=== PATIENT | female | born 1960 ===

== ENCOUNTER 2017-10-05 12:25 | Emergency (ER) | payer MEDICAID ==
[2017-10-05 12:26] VITALS: BMI 34.9
[2017-10-05] MEDS ORDERED: Naproxen 500 MG TAB PO STA (13:56)
--- NOTE | 2017-10-05 14:13 | ED PDOC ---
Lower Extremity Pain/Injury Time Seen by Provider: 10/05/17 12:37 Chief Complaint (Nursing): Lower Extremity Problem/Injury Chief Complaint (Provider): Lower Extremity Problem/Injury History Per: Patient History/Exam Limitations: no limitations Onset/Duration Of Symptoms: Sudden Onset Severity: Mild Pain Scale Rating Of: 8 Additional Complaint(s): 57 years old female with history of hypertension and hypercholesterolemia, presents to the ED today for evaluation of her right ankle pain. Patient states she was getting off the bus earlier today and slipped on wet ground. She reports pain severity as 8 out of 10 scale localized to the right ankle. Patient denies taking medication prior to arrival. Patient also denies any other extremity injury, head injury/LOC, or radiation of pain. PCP: Gigi Bobo - Ankle/Foot Description Of Injury: Other (Slipped) Past Medical History Reviewed: Historical Data, Nursing Documentation, Vital Signs Vital Signs: Last Vital Signs Temp 97.8 F 10/05/17 12:29 Pulse 90 10/05/17 12:29 Resp 20 10/05/17 12:29 BP 167/89 H 10/05/17 12:29 Pulse Ox 98 10/05/17 12:29 - Medical History PMH: Arthritis (osteoarthritis), Fibromyalgia, Fractures (ORIF LEFT TIBIA), Gall Bladder Disease, GERD, HTN (uncontrolled), Hypercholesterolemia, Migraine Denies: Chronic Kidney Disease - Surgical History Surgical History: Cholecystectomy - Family History Family History: States: Unknown Family Hx - Home Medications Home Medications: Ambulatory Orders Medication Instructions Recorded Clindamycin [Cleocin] 300 mg PO TID #30 cap 07/04/14 oxyCODONE/Acetaminophen [Percocet 1 tab PO Q4H PRN #20 tab 07/04/14 5/325 mg Tab] Ibuprofen 600 mg PO Q6H PRN #15 tab 10/23/14 Oxycodone HCl/Acetaminophen 1 tab PO Q6 PRN #10 tab 10/23/14 [Percocet 325 mg-5 mg] Simvastatin 10 mg PO HS 10/23/14 Butalb/Acetaminophen/Caffeine 1 tab PO DAILY PRN 05/06/15 [Gvygybmyco-Tpondecjtxslx-Glnjxcpf 325 mg-50 M] Cyclobenzaprine [Flexeril] 10 mg PO DAILY PRN 05/06/15 Lisinopril 10 mg PO DAILY 05/06/15 Montelukast Sodium 10 mg PO DAILY 05/06/15 Omeprazole 40 mg PO DAILY 05/06/15 Ranitidine Hydrochloride [Zantac 1 tab PO DAILY 05/10/15 300] Neomycin/Polymyxin/Hydrocortis 100 drop XX DAILY #1 bottle 01/03/16 [Cortisporin Otic Susp] Sucralfate [Carafate] 1 gm PO TID #12 tab 01/14/16 Acetaminophen [Acetaminophen 8 650 mg PO Q8 PRN #24 tablet.er 10/05/17 Hour] Meloxicam [Mobic] 15 mg PO DAILY #10 tab 10/05/17 - Allergies Allergies/Adverse Reactions: Allergies Allergy/AdvReac Type Severity Reaction Status Date / Time No Known Allergies Allergy Verified 01/03/16 12:15 Review of Systems ROS Statement: Except As Marked, All Systems Reviewed And Found Negative Musculoskeletal: Positive for: Foot Pain (Right ankle). Negative for: Other ( extremity injuries) Neurological: Negative for: Headache (head injury) Physical Exam - Reviewed Nursing Documentation Reviewed: Yes Vital Signs Reviewed: Yes - Physical Exam Appears: Positive for: Well, Non-toxic, No Acute Distress Head Exam: Positive for: ATRAUMATIC, NORMOCEPHALIC Skin: Positive for: Normal Color, Warm, Dry Eye Exam: Positive for: EOMI, PERRL Neck: Positive for: Painless ROM, Supple Cardiovascular/Chest: Positive for: Regular Rate, Rhythm Respiratory: Positive for: Normal Breath Sounds. Negative for: Decreased Breath Sounds, Accessory Muscle Use, Wheezing, Respiratory Distress Pulses-Dorsalis Pedis (L): 2+ Pulses-Dorsalis Pedis (R): 2+ Gastrointestinal/Abdominal: Positive for: Soft. Negative for: Tenderness, Distended, Guarding Back: Positive for: Normal Inspection. Negative for: Vertebral Tenderness Extremity: Positive for: Tenderness (Right lateral malleolous), Capillary Refill (<2 seconds), Swelling (mild effusion to right ankle). Negative for: Normal ROM (Decreased ROM of right ankle secondary to pain), Pedal Edema, Calf Tenderness, Deformity, Other (skin break, erythema or warmth to right ankle) Neurologic/Psych: Positive for: Alert, Oriented (x 3). Negative for: Motor/ Sensory Deficits - ECG O2 Sat by Pulse Oximetry: 98 (RA) Pulse Ox Interpretation: Normal Medical Decision Making Medical Decision Making: Initial Impression: Acute ankle pain/ sprain status post fall Initial Plan: --Naproxen 500 mg PO --Ultram 50 mg PO --Ankle right 3 views (RAD) 1555 XR reviewed, radiology report follows Janitor Helper : DR. Brandon, Milagros TAY Report Date : 10/05/2017 15:48:52 PROCEDURE: Right Ankle Radiographs. HISTORY: s/p trip and fall COMPARISON: None FINDINGS: BONES: There is no acute displaced fracture or bone destruction. Bone alignment and mineralization are normal. There is a large plantar calcaneal spur. There is a prominent dorsal calcaneal enthesophyte. JOINTS: There is mild degenerative osteoarthrosis in the subtalar joints. Ankle mortise maintained. Talar dome intact SOFT TISSUES: Normal. OTHER FINDINGS: There is a small joint effusion. IMPRESSION: No acute fracture or dislocation. Small joint effusion. 1600 On re-evaluation, patient reports improvement of symptoms. On exam, patient remains AAOx3, in no acute distress. Lungs clear to auscultation, cardiac RRR, abdomen soft, non-tender, repeat neuro exam shows no focal findings. VSS. Repeat BP: 150/78 Repeat HR: 77 Diagnostic results d/w the patient in great detail. Diagnosis of acute ankle pain/sprain d/w the patient. Based on history, exam and diagnostic results, plan will be for outpatient follow up. Patient instructed to follow-up with pmd / referral provided / the clinic in 1- 2 days without fail. Advised to take medication as prescribed. Return to the emergency room at any time for any new or worsening symptoms. Patient states she fully agrees with and understands discharge instructions. States that she agrees with the plan and disposition. Verbalized and repeated discharge instructions and plan. I have given the patient opportunity to ask any additional questions. Scribe Attestation: Documented by Deidre Barboza acting as a scribe for Luz Robles PA-C Provider Scribe Attestation: All medical record entries made by the Scribe were at my direction and personally dictated by me. I have reviewed the chart and agree that the record accurately reflects my personal performance of the history, physical exam, medical decision making, and the department course for this patient. I have also personally directed, reviewed, and agree with the discharge instructions and disposition. Disposition - Clinical Impression Clinical Impression: Ankle pain, Ankle sprain - Patient ED Disposition Is Patient to be Admitted: No Counseled Patient/Family Regarding: Studies Performed, Diagnosis, Need For Followup, Rx Given - Disposition Referrals: Celina Faulkner MD [Family Provider] - Disposition: Routine/Home Disposition Time: 15:57 Condition: STABLE Additional Instructions: REST ICE COMPRESS (BANDAGE) ELEVATE Prescriptions: Acetaminophen [Acetaminophen 8 Hour] 650 mg PO Q8 PRN #24 tablet.er PRN Reason: Pain, Moderate (4-7) Meloxicam [Mobic] 15 mg PO DAILY #10 tab Instructions: Ankle Sprain Forms: [employer] (English) Print Language: GUYANESE - POA Present On Arrival: Falls Or Trauma
[2017-10-05] MEDS ORDERED: Naproxen 500 MG TAB PO ONE (14:20)
--- NOTE | 2017-10-05 15:50 | RAD ---
PROCEDURE: Right Ankle Radiographs. HISTORY: s/p trip and fall COMPARISON: None FINDINGS: BONES: There is no acute displaced fracture or bone destruction. Bone alignment and mineralization are normal. There is a large plantar calcaneal spur. There is a prominent dorsal calcaneal enthesophyte. JOINTS: There is mild degenerative osteoarthrosis in the subtalar joints. Ankle mortise maintained. Talar dome intact SOFT TISSUES: Normal. OTHER FINDINGS: There is a small joint effusion. IMPRESSION: No acute fracture or dislocation. Small joint effusion.
[2017-10-05 16:21] VITALS: BP 150/78; PULSE 77; RESP 18; TEMP 98.2
[2017-10-05 18:37] VITALS: O2SAT 98
== END 2017-10-05 16:25 | disposition home or self-care (01) ==
LOC: H.ER 12:25
DX: S93.401A Sprain of unspecified ligament of right ankle, initial encounter (principal); W01.0XXA Fall on same level from slipping, tripping and stumbling without subsequent striking against object, initial encounter; Y92.89 Other specified places as the place of occurrence of the external cause; E78.00 Pure hypercholesterolemia, unspecified; I10 Essential (primary) hypertension; K21.9 Gastro-esophageal reflux disease without esophagitis; M79.7 Fibromyalgia

== ENCOUNTER 2017-12-22 07:56 | Emergency (ER) | payer MEDICAID ==
[2017-12-22 08:03] VITALS: BMI 35.9
[2017-12-22 08:43] VITALS: O2SAT 98
[2017-12-22] MEDS ORDERED: Lidocaine 5% Patch TD STA (09:00)
[2017-12-22] MEDS ORDERED: Lidocaine 5% Patch TD ONE (09:08)
--- NOTE | 2017-12-22 09:17 | ED PDOC ---
Lower Extremity Pain/Injury Time Seen by Provider: 12/22/17 08:45 Chief Complaint (Nursing): Lower Extremity Problem/Injury Chief Complaint (Provider): Lower Extremity Problem/Injury History Per: Patient, Family (daughter) History/Exam Limitations: no limitations Onset/Duration Of Symptoms: Days (x2 weeks) Current Symptoms Are (Timing): Still Present Additional Complaint(s): Julianne Hare, a 57 year old female with a past history of fibromyalgia and osteoarthritis, presents to the emergency department with complaint of right leg pain radiating from right hip ongoing for 2 weeks. She was seen in the ED on 10/15/17 for a right ankle sprain status post fall. Patient reports taking acetaminophen and Advil for pain with minimal relief. She denies any fever or chills. Patient states she has a pending appointment with an orthopedic doctor on 01/09/18. PMD: Celina Faulkner Past Medical History Reviewed: Historical Data, Nursing Documentation, Vital Signs Vital Signs: Last Vital Signs Temp 98.7 F 12/22/17 08:04 Pulse 95 H 12/22/17 08:04 Resp 20 12/22/17 08:04 BP 147/85 12/22/17 08:04 Pulse Ox 98 12/22/17 08:42 - Medical History PMH: Arthritis (osteoarthritis), Fibromyalgia, Fractures (ORIF LEFT TIBIA), Gall Bladder Disease, GERD, HTN (uncontrolled), Hypercholesterolemia, Migraine Denies: Chronic Kidney Disease - Surgical History Surgical History: Cholecystectomy - Family History Family History: States: Unknown Family Hx - Social History Current smoker - smoking cessation education provided: No Ex-Smoker (has not smoked in the last 12 months): No Alcohol: None Drugs: Denies - Home Medications Home Medications: Ambulatory Orders Medication Instructions Recorded Clindamycin [Cleocin] 300 mg PO TID #30 cap 07/04/14 oxyCODONE/Acetaminophen [Percocet 1 tab PO Q4H PRN #20 tab 07/04/14 5/325 mg Tab] Ibuprofen 600 mg PO Q6H PRN #15 tab 10/23/14 Oxycodone HCl/Acetaminophen 1 tab PO Q6 PRN #10 tab 10/23/14 [Percocet 325 mg-5 mg] Simvastatin 10 mg PO HS 10/23/14 Butalb/Acetaminophen/Caffeine 1 tab PO DAILY PRN 05/06/15 [Wgzxuruwwx-Ysmyvdxhwyvdc-Jjysyhrj 325 mg-50 M] Cyclobenzaprine [Flexeril] 10 mg PO DAILY PRN 05/06/15 Lisinopril 10 mg PO DAILY 05/06/15 Montelukast Sodium 10 mg PO DAILY 05/06/15 Omeprazole 40 mg PO DAILY 05/06/15 Ranitidine Hydrochloride [Zantac 1 tab PO DAILY 05/10/15 300] Neomycin/Polymyxin/Hydrocortis 100 drop XX DAILY #1 bottle 01/03/16 [Cortisporin Otic Susp] Sucralfate [Carafate] 1 gm PO TID #12 tab 01/14/16 Acetaminophen [Acetaminophen 8 650 mg PO Q8 PRN #24 tablet.er 10/05/17 Hour] Meloxicam [Mobic] 15 mg PO DAILY #10 tab 10/05/17 Lidocaine 5% [Lidoderm] 1 ea TD DAILY #30 patch 12/22/17 Naproxen [Naprosyn] 500 mg PO BID #30 tab 12/22/17 - Allergies Allergies/Adverse Reactions: Allergies Allergy/AdvReac Type Severity Reaction Status Date / Time oxycodone Allergy Mild RASH Verified 12/22/17 08:44 Review of Systems ROS Statement: Except As Marked, All Systems Reviewed And Found Negative Constitutional: Negative for: Fever, Chills Genitourinary Female: Positive for: Pelvic Pain (right-sided) Musculoskeletal: Positive for: Leg Pain (right-sided) Physical Exam - Reviewed Nursing Documentation Reviewed: Yes Vital Signs Reviewed: Yes - Physical Exam Appears: Positive for: Non-toxic, No Acute Distress Extremity: Positive for: Normal ROM (normal left knee; 5/5 strength of right knee; L5-S1 normal motor), Other (warm to palpation of right knee; (-) straight leg raise). Negative for: Pedal Edema (bilaterally) Neurologic/Psych: Positive for: Alert, Oriented. Negative for: Motor/Sensory Deficits - ECG O2 Sat by Pulse Oximetry: 98 (RA) Medical Decision Making Medical Decision Making: Initial Impression: Leg Pain Initial Plan: * Lidocaine 5% * Toradol 60 mg IM * 1 View Pelvis RT X-Ray Scribe Attestation: Documented by Harlan Torres, acting as a scribe for Mari Reed MD Provider Scribe Attestation: All medical record entries made by the Scribe were at my direction and personally dictated by me. I have reviewed the chart and agree that the record accurately reflects my personal performance of the history, physical exam, medical decision making, and the department course for this patient. I have also personally directed, reviewed, and agree with the discharge instructions and disposition. Disposition - Clinical Impression Clinical Impression: Hip strain - Patient ED Disposition Is Patient to be Admitted: No Doctor Will See Patient In The: Office Counseled Patient/Family Regarding: Diagnosis, Need For Followup, Rx Given - Disposition Referrals: [facility] [facility] [Outside] [facility] [Outside] Disposition: Routine/Home Disposition Time: 10:00 Condition: STABLE Additional Instructions: Please stop Meloxicam and other pain meds. May continue acetaminophen (Tyleno). Prescriptions: Lidocaine 5% [Lidoderm] 1 ea TD DAILY #30 patch Naproxen [Naprosyn] 500 mg PO BID #30 tab Instructions: Hip Pain Forms: [employer] ([place] Citizen) Print Language: DIVEHI - POA Present On Arrival: None
--- NOTE | 2017-12-22 10:19 | RAD ---
PROCEDURE: Right Hip with pelvis Radiographs. HISTORY: right hip pain x 2 weeks COMPARISON: None. FINDINGS: BONES: No acute fracture or destructive bony lesion identified. JOINTS: Degenerative cortical sclerosis appreciate the bilateral hip greater than sacroiliac joints symmetrically. No subluxation or dislocation appreciable at the right hip joint. Pubic symphysis is intact. SOFT TISSUES: Normal. OTHER FINDINGS: None. IMPRESSION: No acute fracture or dislocation right hip joint. The pelvic ring is intact without fracture. No destructive bony lesion appreciable.
[2017-12-22 11:12] VITALS: BP 126/78; PULSE 78; RESP 19; TEMP 97
== END 2017-12-22 11:13 | disposition home or self-care (01) ==
LOC: H.ER 07:56
DX: S76.011A Strain of muscle, fascia and tendon of right hip, initial encounter (principal); I10 Essential (primary) hypertension; M19.90 Unspecified osteoarthritis, unspecified site; E78.00 Pure hypercholesterolemia, unspecified; Z87.891 Personal history of nicotine dependence; M79.7 Fibromyalgia
CPT/HCPCS: 73501; 96372; 99283; J1885

== ENCOUNTER 2018-08-04 03:02 | Emergency (ER) | payer MEDICAID ==
[2018-08-04 03:02] VITALS: BMI 35.9
[2018-08-04 03:11] VITALS: TEMP 97.8; O2SAT 99
--- NOTE | 2018-08-04 03:32 | ED PDOC ---
HPI: Hypertension/Hypotension Time Seen by Provider: 08/04/18 03:07 Chief Complaint (Nursing): High Blood Pressure Chief Complaint (Provider): High Blood Pressure History Per: Patient History/Exam Limitations: no limitations Onset/Duration Of Symptoms: Hrs (earlier this afternoon) Current Symptoms Are (Timing): Still Present Additional Complaint(s): 58 year old female with pmhx of gastritis, hyperlipidemia, and htn presents to the ED for evaluation of elevated blood pressure. Patient reports that she normally takes Lisinopril and Metoprolol for her BP, but this afternoon had a headache which prompted her to check her BP, finding it to be elevated in the 160/110 range. She took an extra dose of her Lisinopril, which only provided transient relief. When her BP spiked again, she took another half dose of her medication, and then decided to come for evaluation. Denies nausea, vomiting, chest pain, shortness of breath, fever, cough, and visual disturbance but does note abdominal pain which she believes to be from [place] sausage she ate earlier in the day. Additionally, patient is reporting urinary frequency. PMD: none provided Past Medical History Reviewed: Historical Data, Nursing Documentation, Vital Signs Vital Signs: Last Vital Signs Temp 97.8 F 08/04/18 03:07 Pulse 82 08/04/18 03:07 Resp 16 08/04/18 03:07 BP 178/91 H 08/04/18 03:07 Pulse Ox 99 08/04/18 03:07 - Medical History PMH: Arthritis (osteoarthritis), Fibromyalgia, Fractures (ORIF LEFT TIBIA), Gastritis, Gall Bladder Disease, GERD, HTN (uncontrolled), Hypercholesterolemia, Hyperlipidemia, Migraine Denies: Chronic Kidney Disease - Surgical History Surgical History: Cholecystectomy - Family History Family History: States: Unknown Family Hx - Social History Current smoker - smoking cessation education provided: No Alcohol: None Drugs: Denies - Home Medications Home Medications: Ambulatory Orders Medication Instructions Recorded Clindamycin [Cleocin] 300 mg PO TID #30 cap 07/04/14 oxyCODONE/Acetaminophen [Percocet 1 tab PO Q4H PRN #20 tab 07/04/14 5/325 mg Tab] Ibuprofen 600 mg PO Q6H PRN #15 tab 10/23/14 Oxycodone HCl/Acetaminophen 1 tab PO Q6 PRN #10 tab 10/23/14 [Percocet 325 mg-5 mg] Simvastatin 10 mg PO HS 10/23/14 Butalb/Acetaminophen/Caffeine 1 tab PO DAILY PRN 05/06/15 [Stmurspukk-Lfbvxwkmowgii-Hpvrtvkg 325 mg-50 M] Cyclobenzaprine [Flexeril] 10 mg PO DAILY PRN 05/06/15 Lisinopril 10 mg PO DAILY 05/06/15 Montelukast Sodium 10 mg PO DAILY 05/06/15 Omeprazole 40 mg PO DAILY 05/06/15 Ranitidine Hydrochloride [Zantac 1 tab PO DAILY 05/10/15 300] Neomycin/Polymyxin/Hydrocortis 100 drop XX DAILY #1 bottle 01/03/16 [Cortisporin Otic Susp] Sucralfate [Carafate] 1 gm PO TID #12 tab 01/14/16 Acetaminophen [Acetaminophen 8 650 mg PO Q8 PRN #24 tablet.er 10/05/17 Hour] Meloxicam [Mobic] 15 mg PO DAILY #10 tab 10/05/17 Lidocaine 5% [Lidoderm] 1 ea TD DAILY #30 patch 12/22/17 Naproxen [Naprosyn] 500 mg PO BID #30 tab 12/22/17 - Allergies Allergies/Adverse Reactions: Allergies Allergy/AdvReac Type Severity Reaction Status Date / Time oxycodone Allergy Mild RASH Verified 12/22/17 08:44 Review of Systems ROS Statement: Except As Marked, All Systems Reviewed And Found Negative Constitutional: Positive for: Other (hypertensive). Negative for: Fever Eyes: Negative for: Vision Change Cardiovascular: Negative for: Chest Pain Respiratory: Negative for: Cough, Shortness of Breath Gastrointestinal: Positive for: Abdominal Pain. Negative for: Nausea, Vomiting Genitourinary Female: Positive for: Frequency Neurological: Positive for: Headache Physical Exam - Reviewed Nursing Documentation Reviewed: Yes Vital Signs Reviewed: Yes - Physical Exam Appears: Positive for: No Acute Distress Head Exam: Positive for: ATRAUMATIC, NORMOCEPHALIC Skin: Positive for: Normal Color, Warm, DRY Eye Exam: Positive for: EOMI, Normal appearance, PERRL ENT: Positive for: Normal ENT Inspection Neck: Positive for: Normal, Painless ROM, Supple Cardiovascular/Chest: Positive for: Regular Rate, Rhythm Respiratory: Positive for: Normal Breath Sounds. Negative for: Respiratory Distress Gastrointestinal/Abdominal: Positive for: Normal Exam, Soft. Negative for: Tenderness Back: Positive for: Normal Inspection Extremity: Positive for: Normal ROM (all extremities) Neurologic/Psych: Positive for: Alert, Oriented (x3). Negative for: Motor/Sensory Deficits - Laboratory Results Result Diagrams: 08/04/18 03:55 08/04/18 03:55 - ECG O2 Sat by Pulse Oximetry: 99 (RA) Pulse Ox Interpretation: Normal Medical Decision Making Medical Decision Making: Time: 328 Initial Impression: 58 year old female with hypertension Initial Plan: --EKG --CMP --U-dip --CBC with differential --Urinalysis --Reevaluation 0444 Labs reviewed with no clinically significant abnormalities. Patient remains asymptomatic in ED with BP that is within acceptable range. She is scheduled for a follow up on 08/07 with her PMD. Stable for d/c with diagnosis of hypertension. Scribe Attestation: Documented by Glendy Beverly, acting as a scribe for Enmanuel Gabriel MD. Provider Scribe Attestation: All medical record entries made by the Scribe were at my direction and personally dictated by me. I have reviewed the chart and agree that the record accurately reflects my personal performance of the history, physical exam, medical decision making, and the department course for this patient. I have also personally directed, reviewed, and agree with the discharge instructions and disposition. Disposition - Clinical Impression Clinical Impression: Hypertension - Patient ED Disposition Is Patient to be Admitted: No Counseled Patient/Family Regarding: Studies Performed, Diagnosis, Need For Followup - Disposition Disposition: Routine/Home Disposition Time: 04:45 Condition: STABLE Instructions: High Blood Pressure in Adults Forms: [employer] (Cuban) Print Language: CITIZEN OF [place]
[2018-08-04 03:59] LABS: BASO % 0.5 % (0.0-2.0); EOS # 0.2 K/uL (0.0-0.7); EOS % 2.8 % (0.0-4.0); HEMOGLOBIN 14.1 g/dL (12.0-16.0); LYMPH # 2.6 K/uL (1.0-4.3); LYMPH % 33.8 % (20.0-40.0); MEAN CELL VOLUME 80.9 fl (81.0-99.0); MEAN CORPUSCULAR HEMOGLOBIN 26.6 pg (27.0-31.0); MEAN CORPUSCULAR HGB CONC 32.9 g/dL (33.0-37.0); MEAN PLATELET VOLUME 9.3 fl (7.2-11.7); MONO # 0.9 K/uL (0.0-0.8); MONO % 11.8 % (0.0-10.0); NEUT # 3.9 K/uL (1.8-7.0); NEUT % 51.1 % (50.0-75.0); NRBC % 0.4 % (0.0-0.0); RBC 5.29 Mil/uL (3.80-5.20); RED CELL DISTRIBUTION WIDTH 13.5 % (11.5-14.5); WHITE BLOOD COUNT 7.6 K/uL (4.8-10.8)
[2018-08-04 04:07] LABS: ALB/GLOB RATIO 1.1 (1.0-2.1); ALBUMIN 4.4 g/dL (3.5-5.0); ALT/SGPT 19 U/L (9-52); AST/SGOT 21 U/L (14-36); BLOOD UREA NITROGEN 12 mg/dl (7-17); CALCIUM 9.7 mg/dL (8.4-10.2); GFR NON-AFRICAN AMERICAN > 60
[2018-08-04 04:18] LABS: SQUAMOUS EPITHIAL 1 /hpf (0-5); URINE BACTERIA RARE (<OCC); URINE BILIRUBIN NEGATIVE (NEGATIVE); URINE BLOOD NEGATIVE (NEGATIVE); URINE CLARITY SLIGHTY-CLOUDY (Clear); URINE COLOR YELLOW (YELLOW); URINE GLUCOSE (UA) NEG (NEGATIVE); URINE LEUKOCYTE ESTERASE NEG Leu/uL (Negative); URINE PROTEIN NEGATIVE (NEGATIVE); URINE UROBILINOGEN 0.2-1.0 mg/dL (0.2-1.0)
--- NOTE | 2018-08-04 11:51 | CARD ---
APPROVED REPORT Date of service: 08/04/2018 EKG Measurement Heart [id number] <Conclusion> Normal sinus rhythm Normal ECG
[2018-08-05 07:53] VITALS: BP 139/64; PULSE 89; RESP 18
== END 2018-08-04 05:05 | disposition home or self-care (01) ==
LOC: H.ER 03:02
DX: I10 Essential (primary) hypertension (principal); M79.7 Fibromyalgia; Z88.5 Allergy status to narcotic agent; M19.90 Unspecified osteoarthritis, unspecified site

== ENCOUNTER 2018-09-28 17:20 | Emergency (ER) | payer MEDICAID ==
[2018-09-28 17:38] VITALS: BMI 36.8
[2018-09-28 18:28] LABS: PROTHROMBIN TIME 11.4 Seconds (9.8-13.1)
[2018-09-28 18:30] LABS: PARTIAL THROMBOPLASTIN TIME 32.6 Seconds (25.6-37.1)
[2018-09-28 18:31] LABS: BASO % 0.4 % (0.0-2.0); EOS # 0.1 K/uL (0.0-0.7); EOS % 1.9 % (0.0-4.0); HEMOGLOBIN 13.9 g/dL (12.0-16.0); LYMPH # 2.5 K/uL (1.0-4.3); LYMPH % 31.7 % (20.0-40.0); MEAN CORPUSCULAR HEMOGLOBIN 26.6 pg (27.0-31.0); MEAN CORPUSCULAR HGB CONC 32.8 g/dL (33.0-37.0); MEAN PLATELET VOLUME 9.5 fl (7.2-11.7); MONO # 0.8 K/uL (0.0-0.8); MONO % 10.2 % (0.0-10.0); NEUT # 4.4 K/uL (1.8-7.0); NEUT % 55.8 % (50.0-75.0); NRBC % 0.1 % (0.0-0.0); RBC 5.22 Mil/uL (3.80-5.20); WHITE BLOOD COUNT 7.9 K/uL (4.8-10.8)
--- NOTE | 2018-09-28 18:39 | ED PDOC ---
HPI: General Adult Time Seen by Provider: 09/28/18 17:48 Chief Complaint (Nursing): Palpitations Chief Complaint (Provider): Palpitations History Per: Patient History/Exam Limitations: no limitations Current Symptoms Are (Timing): Still Present Additional Complaint(s): 58 year old female with a history of hypertension and high cholesterol presents to the ED with palpitations. Patient states symptoms began about an hour and half after she ate. She reports associated lightheadedness, dizziness and shakiness which she has felt in the past. However, this time she experienced her heart racing for the first time. She reports mild shortness of breath, but denies any chest pain, leg swelling or alcohol use. Patient checked her blood pressure at home which was unremarkable but noted that her heart rate was 108, prompting ED visit. PMD: Dr. Dennis Past Medical History Vital Signs: Last Vital Signs Temp 98.3 F 09/28/18 17:39 Pulse 103 H 09/28/18 17:39 Resp 18 09/28/18 17:39 BP 148/82 09/28/18 17:39 Pulse Ox 100 09/28/18 17:39 - Medical History PMH: Arthritis (osteoarthritis), Fibromyalgia, Fractures (ORIF LEFT TIBIA), Gastritis, Gall Bladder Disease, GERD, HTN (uncontrolled), Hypercholesterolemia, Hyperlipidemia, Migraine Denies: Chronic Kidney Disease - Surgical History Surgical History: Cholecystectomy Other surgeries: left lower leg repair after major accident - Family History Family History: States: Hypertension - Social History Current smoker - smoking cessation education provided: No Ex-Smoker (has not smoked in the last 12 months): No Alcohol: None Drugs: Denies - Home Medications Home Medications: Ambulatory Orders Medication Instructions Recorded Clindamycin [Cleocin] 300 mg PO TID #30 cap 07/04/14 oxyCODONE/Acetaminophen [Percocet 1 tab PO Q4H PRN #20 tab 07/04/14 5/325 mg Tab] Ibuprofen 600 mg PO Q6H PRN #15 tab 10/23/14 Oxycodone HCl/Acetaminophen 1 tab PO Q6 PRN #10 tab 10/23/14 [Percocet 325 mg-5 mg] Simvastatin 10 mg PO HS 10/23/14 Butalb/Acetaminophen/Caffeine 1 tab PO DAILY PRN 05/06/15 [Ejokghfecm-Uqfphukqqzflq-Rwlpxuvl 325 mg-50 M] Cyclobenzaprine [Flexeril] 10 mg PO DAILY PRN 05/06/15 Lisinopril 10 mg PO DAILY 05/06/15 Montelukast Sodium 10 mg PO DAILY 05/06/15 Omeprazole 40 mg PO DAILY 05/06/15 Ranitidine Hydrochloride [Zantac 1 tab PO DAILY 05/10/15 300] Neomycin/Polymyxin/Hydrocortis 100 drop XX DAILY #1 bottle 01/03/16 [Cortisporin Otic Susp] Sucralfate [Carafate] 1 gm PO TID #12 tab 01/14/16 Acetaminophen [Acetaminophen 8 650 mg PO Q8 PRN #24 tablet.er 10/05/17 Hour] Meloxicam [Mobic] 15 mg PO DAILY #10 tab 10/05/17 Lidocaine 5% [Lidoderm] 1 ea TD DAILY #30 patch 12/22/17 Naproxen [Naprosyn] 500 mg PO BID #30 tab 12/22/17 - Allergies Allergies/Adverse Reactions: Allergies Allergy/AdvReac Type Severity Reaction Status Date / Time oxycodone Allergy Mild RASH Verified 09/28/18 17:39 Review of Systems ROS Statement: Except As Marked, All Systems Reviewed And Found Negative (and as per HPI) Constitutional: Positive for: Other (shakiness ) Cardiovascular: Positive for: Palpitations, Light Headedness. Negative for: Chest Pain Respiratory: Positive for: Shortness of Breath Musculoskeletal: Positive for: Other (no leg swelling) Neurological: Positive for: Dizziness Physical Exam - Reviewed Nursing Documentation Reviewed: Yes Vital Signs Reviewed: Yes - Physical Exam Appears: Positive for: No Acute Distress Head Exam: Positive for: ATRAUMATIC, NORMOCEPHALIC Skin: Positive for: Warm, Dry Eye Exam: Positive for: EOMI, PERRL Neck: Positive for: Painless ROM, Supple Cardiovascular/Chest: Positive for: Tachycardia (with regular rhythm ) Respiratory: Positive for: Normal Breath Sounds. Negative for: Respiratory Distress Gastrointestinal/Abdominal: Positive for: Soft. Negative for: Tenderness, Mass, Distended Back: Positive for: Normal Inspection. Negative for: Muscle Spasm Extremity: Positive for: Normal ROM. Negative for: Deformity Lymphatic: Negative for: Adenopathy Neurological/Psych: Positive for: Awake, Alert, Mood/Affect (anxious), Other (occasional tremors). Negative for: Motor/Sensory Deficits - Laboratory Results Result Diagrams: 09/28/18 18:15 09/28/18 18:15 Lab Results: PT 11.4 Seconds (9.8-13.1) 09/28/18 18:15 INR 1.0 09/28/18 18:15 APTT 32.6 Seconds (25.6-37.1) 09/28/18 18:15 - ECG O2 Sat by Pulse Oximetry: 100 (RA) Pulse Ox Interpretation: Normal Medical Decision Making Medical Decision Making: Time: 1806 Impression: tachycardia Differential diagnoses include but are not limited to: arrhythmia, electrolyte abnormalities, thyroid disorder, PE and anxiety Plan: --type and screen --EKG --BNP --CMP --magnesium --phosphorus --TSH --Troponin --CBC --D dimer --PTT --PT/INR --CXR EKG NSR No st elev/depr QRS narrow, occasional different QRS morphology which is still narrow and regular. 740p Repeat EKG. SR at 80 with uniform QRS Pt reports feeling better. DW pt findings and plan of care. Advised followup pmd. Pt reporting headache and requesting tylenol. Scribe Attestation: Documented by Nickie Bae, acting as a scribe for Sofiya Padron MD. Provider Scribe Attestation: All medical record entries made by the Scribe were at my direction and personally dictated by me. I have reviewed the chart and agree that the record accurately reflects my personal performance of the history, physical exam, medical decision making, and the department course for this patient. I have also personally directed, reviewed, and agree with the discharge instructions and disposition.----- Scribe Attestation: Documented by Nickie Bae, acting as a scribe for Sofiya Padron MD. Provider Scribe Attestation: All medical record entries made by the Scribe were at my direction and personally dictated by me. I have reviewed the chart and agree that the record accurately reflects my personal performance of the history, physical exam, medical decision making, and the department course for this patient. I have also personally directed, reviewed, and agree with the discharge instructions and d isposition. Disposition - Clinical Impression Clinical Impression: Palpitations Counseled Patient/Family Regarding: Studies Performed, Diagnosis, Need For Followup - Disposition Referrals: Samuel Dennis MD [Family Provider] - 09/30/18 Disposition: Routine/Home Disposition Time: 19:43 Condition: IMPROVED Instructions: Palpitations (DC) Print Language: KITTITIAN
[2018-09-28 18:44] LABS: ALB/GLOB RATIO 1.2 (1.0-2.1); ALBUMIN 4.6 g/dL (3.5-5.0); BLOOD UREA NITROGEN 11 mg/dl (7-17); CALCIUM 9.2 mg/dL (8.4-10.2); GFR NON-AFRICAN AMERICAN > 60
[2018-09-28 18:51] LABS: ALT/SGPT 21 U/L (9-52); AST/SGOT 46 U/L (14-36)
[2018-09-28 18:54] LABS: B-TYPE NATRIURETIC PEPTIDE 24.8 pg/ml (0-900)
[2018-09-28 19:43] VITALS: O2SAT 100
[2018-09-28 20:11] VITALS: BP 120/73; PULSE 82; RESP 18; TEMP 98.1
--- NOTE | 2018-09-29 13:06 | RAD ---
Date of service: 09/28/2018 HISTORY: palpitations COMPARISON: No prior. TECHNIQUE: Chest PA and lateral views FINDINGS: LUNGS: No active pulmonary disease. Note is made of a small rounded nodular density in the retrosternal airspace seen on lateral projection. This could represent vessel on end artifact however possibility of a small parenchymal nodule not excluded. Recommend follow-up nonemergent CT scan of the chest. PLEURA: No significant pleural effusion identified. No pneumothorax apparent. CARDIOVASCULAR: Minor aortic atherosclerotic calcification present. Normal cardiac size. No pulmonary vascular congestion. OSSEOUS STRUCTURES: Minor multilevel degenerative spondylosis of the thoracic spine. VISUALIZED UPPER ABDOMEN: Normal. OTHER FINDINGS: None. IMPRESSION: No active disease.. Note is made of a small rounded nodular density in the retrosternal airspace seen on lateral projection. This could represent vessel on end artifact however possibility of a small parenchymal nodule not excluded. Recommend follow-up nonemergent CT scan of the chest.. Note this report was placed in PA review folder for follow up
--- NOTE | 2018-09-29 17:39 | CARD ---
APPROVED REPORT Date of service: 09/28/2018 EKG Measurement Heart [id number] <Conclusion> Normal sinus rhythm Normal ECG
--- NOTE | 2018-09-30 09:13 | CARD ---
APPROVED REPORT Date of service: 09/28/2018 EKG Measurement Heart [id number] 180P61 [id number] <Conclusion> Normal sinus rhythm Normal ECG
== END 2018-09-28 20:09 | disposition home or self-care (01) ==
LOC: H.ER 17:20
DX: R00.2 Palpitations (principal); I10 Essential (primary) hypertension; E78.00 Pure hypercholesterolemia, unspecified; K21.9 Gastro-esophageal reflux disease without esophagitis; M79.7 Fibromyalgia; Z88.5 Allergy status to narcotic agent

== ENCOUNTER 2018-10-14 16:42 | Emergency (ER) | payer MEDICAID ==
[2018-10-14 16:42] VITALS: BMI 36.8
[2018-10-14 16:50] VITALS: RESP 18
[2018-10-14 18:35] LABS: BASO % 0.3 % (0.0-2.0); EOS # 0.1 K/uL (0.0-0.7); EOS % 1.2 % (0.0-4.0); LYMPH # 1.4 K/uL (1.0-4.3); LYMPH % 14.4 % (20.0-40.0); MEAN CELL VOLUME 80.1 fl (81.0-99.0); MEAN CORPUSCULAR HEMOGLOBIN 26.7 pg (27.0-31.0); MEAN CORPUSCULAR HGB CONC 33.4 g/dL (33.0-37.0); MEAN PLATELET VOLUME 9.1 fl (7.2-11.7); MONO # 0.7 K/uL (0.0-0.8); MONO % 7.4 % (0.0-10.0); NEUT # 7.3 K/uL (1.8-7.0); NEUT % 76.7 % (50.0-75.0); NRBC % 0.1 % (0.0-0.0); RBC 5.25 Mil/uL (3.80-5.20); RED CELL DISTRIBUTION WIDTH 13.8 % (11.5-14.5); WHITE BLOOD COUNT 9.5 K/uL (4.8-10.8)
--- NOTE | 2018-10-14 19:00 | ED PDOC ---
HPI: Hypertension/Hypotension Time Seen by Provider: 10/14/18 17:17 Chief Complaint (Nursing): Dizziness/Lightheaded Chief Complaint (Provider): Palpitations History Per: Patient History/Exam Limitations: no limitations Onset/Duration Of Symptoms: Hrs Current Symptoms Are (Timing): Still Present Additional Complaint(s): 58 y/o female HTN, Hypercholesterolemia, Migraines, Fibromyalgia, Gastritis, Gall Bladder Disease, GERD and Hyperlipidemia presents to the ED for evaluation of palpitations, onset just prior to arrival. Patient reports of feeling her heart racing associated with some lightheadedness, heaviness to the shoulders, mild shortness of breath, blurry vision and chest pressure just prior to arrival. Patient notes symptoms lasted for approximately 45 minutes and resolved spontaneously. Patient reports of a history of palpitations in the past. However, patient states this episode was different from other because it did not occur after eating like it did in the past. PMD: Samuel Dennis Past Medical History Reviewed: Historical Data, Nursing Documentation, Vital Signs Vital Signs: Last Vital Signs Temp 98.9 F 10/14/18 16:48 Pulse 113 H 10/14/18 16:48 Resp 18 10/14/18 16:48 BP 136/92 H 10/14/18 16:48 Pulse Ox 99 10/14/18 16:48 - Medical History PMH: Arthritis (osteoarthritis), Fibromyalgia, Fractures (ORIF LEFT TIBIA), Gastritis, Gall Bladder Disease, GERD, HTN (uncontrolled), Hypercholesterolemia, Hyperlipidemia, Migraine Denies: Chronic Kidney Disease - Surgical History Surgical History: Cholecystectomy - Family History Family History: States: Hypertension - Home Medications Home Medications: Ambulatory Orders Medication Instructions Recorded Clindamycin [Cleocin] 300 mg PO TID #30 cap 07/04/14 oxyCODONE/Acetaminophen [Percocet 1 tab PO Q4H PRN #20 tab 07/04/14 5/325 mg Tab] Ibuprofen 600 mg PO Q6H PRN #15 tab 10/23/14 Oxycodone HCl/Acetaminophen 1 tab PO Q6 PRN #10 tab 10/23/14 [Percocet 325 mg-5 mg] Simvastatin 10 mg PO HS 10/23/14 Butalb/Acetaminophen/Caffeine 1 tab PO DAILY PRN 05/06/15 [Hcdqmqwgbo-Yiydqtudjnlct-Hxpxkwtb 325 mg-50 M] Cyclobenzaprine [Flexeril] 10 mg PO DAILY PRN 05/06/15 Lisinopril 10 mg PO DAILY 05/06/15 Montelukast Sodium 10 mg PO DAILY 05/06/15 Omeprazole 40 mg PO DAILY 05/06/15 Ranitidine Hydrochloride [Zantac 1 tab PO DAILY 05/10/15 300] Neomycin/Polymyxin/Hydrocortis 100 drop XX DAILY #1 bottle 01/03/16 [Cortisporin Otic Susp] Sucralfate [Carafate] 1 gm PO TID #12 tab 01/14/16 Acetaminophen [Acetaminophen 8 650 mg PO Q8 PRN #24 tablet.er 10/05/17 Hour] Meloxicam [Mobic] 15 mg PO DAILY #10 tab 10/05/17 Lidocaine 5% [Lidoderm] 1 ea TD DAILY #30 patch 12/22/17 Naproxen [Naprosyn] 500 mg PO BID #30 tab 12/22/17 - Allergies Allergies/Adverse Reactions: Allergies Allergy/AdvReac Type Severity Reaction Status Date / Time oxycodone Allergy Mild RASH Verified 10/14/18 16:50 Review of Systems ROS Statement: Except As Marked, All Systems Reviewed And Found Negative (as per HPI) Eyes: Positive for: Vision Change Cardiovascular: Positive for: Palpitations, Other (chest pressure) Respiratory: Positive for: Shortness of Breath (mild) Musculoskeletal: Positive for: Shoulder Pain (heaviness to the shoulders) Neurological: Positive for: Other (lightheadedness) Physical Exam - Reviewed Nursing Documentation Reviewed: Yes Vital Signs Reviewed: Yes - Physical Exam Appears: Positive for: Well, Non-toxic, No Acute Distress Head Exam: Positive for: ATRAUMATIC, NORMOCEPHALIC Skin: Positive for: Warm, Dry Eye Exam: Positive for: EOMI, PERRL ENT: Negative for: Pharyngeal Erythema, Tonsillar Exudate Neck: Positive for: Painless ROM, Supple Cardiovascular/Chest: Positive for: Regular Rate, Rhythm. Negative for: Murmur Respiratory: Positive for: Normal Breath Sounds (lungs clear to auscultation bilaterally ). Negative for: Wheezing, Respiratory Distress Gastrointestinal/Abdominal: Positive for: Soft. Negative for: Tenderness Back: Positive for: Normal Inspection. Negative for: Decreased ROM Extremity: Positive for: Normal ROM. Negative for: Deformity Lymphatic: Negative for: Adenopathy Neurological/Psych: Positive for: Awake, Alert. Negative for: Motor/Sensory Deficits - Laboratory Results Result Diagrams: 10/14/18 18:32 10/14/18 18:32 - ECG ECG Rhythm: Positive for: Normal QRS, Normal ST Segment, Sinus Rhythm Interpretation Of ECG: Prolonged QT, QTC = 487 Rate: 98 O2 Sat by Pulse Oximetry: 99 (RA) Pulse Ox Interpretation: Normal Medical Decision Making Medical Decision Making: Time: 1751 Impression: Palpitations Differentials include but not limited to anxiety, electrolyte abnormality, thyroid disorder and arrhythmia Plan: -- EKG -- CMP -- Urine Drug Screen -- Magnesium -- Phosphorus -- Thyroid Stimulating Hormone -- Troponin I -- ED Urine Dipstick -- CBC with Differentials -- D Dimer [COAG] -- Supervisor Reactor Fueling -- IV Insertion Labs unremarkable Repeat EKG NSR with prolonged QT, similar to previous. Stable for discharge. Stressed importance of cardiology followup. Scribe Attestation: Documented by Flor Sanchez, acting as a scribe Juan Daniel Padron MD. Provider Scribe Attestation: All medical record entries made by the Scribe were at my direction and personally dictated by me. I have reviewed the chart and agree that the record accurately reflects my personal performance of the history, physical exam, medical decision making, and the department course for this patient. I have also personally directed, reviewed, and agree with the discharge instructions and disposition. Disposition - Clinical Impression Clinical Impression: Palpitations Counseled Patient/Family Regarding: Studies Performed, Diagnosis, Need For Followup - Disposition Referrals: Niranjan Mirza MD [Staff Provider] - Samuel Dennis MD [Family Provider] - [facility] [Outside] Disposition: Routine/Home Disposition Time: 22:08 Condition: STABLE Additional Instructions: ESTA MUY VISITAR UN CARDIOLOGO POR MAS EVALUACIONES. LA MANANA LLAMA A LA OFICINA DE SMITH DOCTOR Y CARDIOLOGO A HACER CITAS ANTES QUE FIN DE SEMANA Instructions: Palpitations (DC) Print Language: SURINAMESE
[2018-10-14 19:18] LABS: ALB/GLOB RATIO 1.3 (1.0-2.1); ALBUMIN 4.6 g/dL (3.5-5.0); ALT/SGPT 31 U/L (9-52); AST/SGOT 32 U/L (14-36); BARBITURATES, UR NEGATIVE (NEGATIVE); BENZODIAZEPINES, UR NEGATIVE (NEGATIVE); BLOOD UREA NITROGEN 13 mg/dl (7-17); CALCIUM 9.8 mg/dL (8.4-10.2); GFR NON-AFRICAN AMERICAN > 60; OPIATES, UR NEGATIVE (NEGATIVE); PHENCYCLIDINE, UR NEGATIVE (NEGATIVE)
[2018-10-14 22:31] VITALS: BP 120/73; TEMP 98.6
[2018-10-15 15:11] VITALS: PULSE 98; O2SAT 99
--- NOTE | 2018-10-15 21:11 | CARD ---
APPROVED REPORT Date of service: 10/14/2018 EKG Measurement Heart [id number] 176P64 [id number] <Conclusion> Normal sinus rhythm Prolonged QT Abnormal ECG
== END 2018-10-14 22:30 | disposition home or self-care (01) ==
LOC: H.ER 16:42
DX: R00.2 Palpitations (principal)